=== PATIENT | male | born 1965 | race Caucasian/White ===

== ENCOUNTER 2022-10-16 17:21 | Emergency (ER) | payer BC, SELFPAY ==
--- NOTE | ~2022-10-16 | XR_ITS ---
EXAMINATION: XR CHEST CLINICAL INFORMATION: Food bolus stuck COMPARISON: None TECHNIQUE: 2 views of the chest were obtained. FINDINGS: No significant abnormality is noted involving the heart, lungs, mediastinum, bony thorax or soft tissues. XR/XR chest 2V IMPRESSION: Unremarkable examination.
--- NOTE | ~2022-10-16 | XR_ITS ---
EXAMINATION: XR SOFT TISSUE NECK CLINICAL INDICATION: Question food bolus stuck COMPARISON: None TECHNIQUE: 2 views of the soft tissue neck were obtained. FINDINGS: Soft tissue films of the neck demonstrate a normal larynx, pharynx and upper trachea. No soft tissue swelling or opaque foreign body is demonstrated. Mild cervical spondylosis C6-C7. Visualized lung apices are grossly clear. XR/XR soft tissue neck IMPRESSION: 1. No radiopaque foreign body identified. 2. Mild lower cervical spondylosis.
[2022-10-16 17:28] VITALS: BP 169/94; PULSE 70; RESP 16; TEMP 36.6; O2SAT 98; BMI 27.4
--- NOTE | 2022-10-16 17:28 | ED_ITS ---
HPI - Skin/Abscess/Foreign Bdy General Chief complaint: General Medical <CHRISTOPH Simpson - Last Filed: 10/16/22 17:32> Stated complaint: ?throat infection/infected bug bite <CHRISTOPH Simpson - Last Filed: 10/16/22 17:32> Time Seen by Provider: 10/16/22 18:50 <CHRISTOPH Simpson - Last Filed: 10/16/22 17:32> Source: patient <Austin Boyer MD - Last Filed: 10/17/22 16:26> Limitations: no limitations <Austin Boyer MD - Last Filed: 10/17/22 16:26> History of Present Illness HPI narrative: This is a 57-year-old male with a history of esophageal foreign body who was eating piece of meat today when it got lodged in his esophagus. The patient initially had discomfort but the bolus did pass and the discomfort has passed. He denies any residual sore throat. The patient also notes that 3 4 days ago he felt like he got a bug bite just below the base of his neck and his upper back. He has noted some pain and swelling to the area, with some drainage. He denies any fever. He has history of prostate cancer which is being followed, denies any diabetes. He also notes he did have H pylori diagnosed about a year ago and was treated and had a repeat test which was negative. <Austin Boyer MD - Last Filed: 10/17/22 16:26> Related Data Home medications: Previous Rx's Medication Instructions Recorded cephalexin 500 mg capsule 500 mg PO TID #20 caps 10/16/22 <CHRISTOPH Simpson - Last Filed: 10/16/22 17:32> Allergies/Adverse reactions: Allergies Allergy/AdvReac Type Severity Reaction Status Date / Time No Known Allergies Allergy Verified 10/16/22 17:28 <CHRISTOPH Simpson - Last Filed: 10/16/22 17:32> Review of Systems Review of Systems: As per HPI <Austin Boyer MD - Last Filed: 10/17/22 16:26> Constitutional: Constitutional: Denies fever(s) <Austin Boyer MD - Last Filed: 10/17/22 16:26> PMFSH Social History Social History: Social History Advance Directives: No Advance Directives Information Provided: Yes <CHRISTOPH Simpson - Last Filed: 10/16/22 17:32> Physical Exam Vital Signs: Vital Signs: Last Vital Signs Temp 97.9 F 10/16/22 17:28 Pulse 70 10/16/22 17:28 Resp 16 10/16/22 17:28 BP 169/94 H 10/16/22 17:28 Pulse Ox 98 10/16/22 17:28 BMI result Body Mass Index 27.4 <CHRISTOPH Simpson - Last Filed: 10/16/22 17:32> Vital Signs: Last Vital Signs Temp 97.9 F 10/16/22 17:28 Pulse 70 10/16/22 17:28 Resp 16 10/16/22 17:28 BP 169/94 H 10/16/22 17:28 Pulse Ox 98 10/16/22 17:28 BMI result Body Mass Index 27.4 <Austin Boyer MD - Last Filed: 10/17/22 16:26> Const: Other: PERRLA Conj [place] Mucous membranes moist Throat clear Neck supple Lungs CTA Heart RRR no murmurs rubs or gallops Abd soft, non tender, non distended Extremities no pitting edema Neuro alert and oriented x 3, non focal Skin: Approximately 2 cm in diameter ulcerated lesion just below the posterior base of the neck, with mild localized erythema. There is small amount of pus that can be expressed from this wound however there is no overall induration or fluctuance, lesion seems relatively superficial, no deeper pocket of pus suspected. <Austin Boyer MD - Last Filed: 10/17/22 16:26> Course Course Course Narrative: RME- 17:30PM - 57yoM c PMhx of H pylori presenting to the ED c c/o food getting lodged in his throat for the past 2 weeks. Reports that this happened in the past when he had it H pylori infection and had endoscope and was placed on antibiotics and his symptoms were improved over the past year up until 2 weeks ago. Also reports the insect bite to the back of his back that he would like it looked at. Reports the bug bite is swollen. Denies any other symptoms complaints or concerns at this time. Patient reports he normally lives in [place] and is here visiting. 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 Plan: Will obtain labs, soft tissue neck and chest x-ray. Patient will be sent to [facility] for further evaluation and treatment. Patient tolerating secretions well no trismus/drooling/stridor. <CHRISTOPH Simpson - Last Filed: 10/16/22 17:32> RME- 17:30PM - 57yoM c PMhx of H pylori presenting to the ED c c/o food getting lodged in his throat for the past 2 weeks. Reports that this happened in the past when he had it H pylori infection and had endoscope and was placed on antibiotics and his symptoms were improved over the past year up until 2 weeks ago. Also reports t he insect bite to the back of his back that he would like it looked at. Reports the bug bite is swollen. Denies any other symptoms complaints or concerns at this time. Patient reports he normally lives in [place] and is here visiting. 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 Plan: Will obtain labs, soft tissue neck and chest x-ray. Patient will be sent to [facility] for further evaluation and treatment. Patient tolerating secretions well no trismus/drooling/stridor. As much pus as possible was expressed from the patient's wound. Patient is being treated Keflex 500 mg p.o. t.i.d.. He is to do warm compresses or soaks. He has follow-up with his electric powerline examiner back in [place] regarding his recurrent esophageal issues. <Austin Boyer MD - Last Filed: 10/17/22 16:26> Medications Administered Discontinued Medications Generic Name Dose Route Start Last Admin Trade Name Freq PRN Reason Stop Dose Admin Cephalexin HCl 500 mg 10/16/22 19:03 10/16/22 19:32 Cephalexin 500 Mg Capsule PO 10/16/22 19:04 500 mg ONCE ONE Administration Cephalexin HCl 500 mg 10/16/22 19:05 10/16/22 19:32 Cephalexin 500 Mg Capsule PO 10/16/22 19:06 500 mg ONCE ONE Administration <CHRISTOPH Simpson - Last Filed: 10/16/22 17:32> Medications Administered Discontinued Medications Generic Name Dose Route Start Last Admin Trade Name Freq PRN Reason Stop Dose Admin Cephalexin HCl 500 mg 10/16/22 19:03 10/16/22 19:32 Cephalexin 500 Mg Capsule PO 10/16/22 19:04 500 mg ONCE ONE Administration Cephalexin HCl 500 mg 10/16/22 19:05 10/16/22 19:32 Cephalexin 500 Mg Capsule PO 10/16/22 19:06 500 mg ONCE ONE Administration <Austin Boyer MD - Last Filed: 10/17/22 16:26> Medical Decision Making Lab Data [facility] Lab Attestation statement: I reviewed the patient's lab results. <Austin Boyer MD - Last Filed: 10/17/22 16:26> Result Diagrams: : 10/16/22 17:46 10/16/22 17:46 <CHRISTOPH Simpson - Last Filed: 10/16/22 17:32> Labs: Lab Results 10/16/22 10/16/22 10/16/22 Range/Units 17:46 17:46 17:46 WBC 6.7 (4.8-10.8) X10*3/uL RBC 5.75 (4.60-5.80) X10*6/uL Hgb 16.9 (14.0-18.0) g/dl Hct 49.8 (42.0-52.0) % MCV 86.6 (80.0-98.0) fL MCH 29.4 (27.0-33.0) pg MCHC 33.9 (31.0-36.0) g/dl RDW 13.6 (11.0-16.0) % Plt Count 240 (160-400) X10*3/uL MPV 8.9 L (9.4-12.4) fL Immature Gran % (Auto) 0.6 H (0.0-0.4) % Neut % (Auto) 54.8 (45-73) % Lymph % (Auto) 30.1 (20-40) % [place] % (Auto) 9.5 (2-11) % Eos % (Auto) 4.3 H (0-4) % Baso % (Auto) 0.7 (0-2) % Lymph # (Auto) 2.0 (1.2-4.9) X10*3/uL [place] # (Auto) 0.6 (0.1-1.2) X10*3/uL Eos # (Auto) 0.3 (0.0-0.4) X10*3/uL Baso # (Auto) 0.1 (0.0-0.2) X10*3/uL Abs Immat Gran (auto) 0.04 H (0.00-0.03) X10*3/uL Absolute Neuts (auto) 3.7 (2.0-8.3) x10*3/uL Absolute Nucleated RBC 0.000 (0.0-0.012) X10*3/uL Nucleated RBC % (auto) 0.0 (0.0-0.2) /100WBC PT 12.2 (10.0-13.1) SEC INR 1.1 (0.9-1.1) Sodium 139 (135-145) mmol/L Potassium 4.6 (3.3-5.1) mmol/L Chloride 104 (96-108) mmol/L Carbon Dioxide 28 (22-29) mmol/L Anion Gap 12 (12-20) BUN 20 H (9-16) mg/dL Creatinine 1.02 (0.5-1.4) mg/dL Estim Creat Clear Calc 70.3 Estimated GFR > 60 Random Glucose 103 (60-115) mg/dL Calcium 9.3 (8.4-10.2) mg/dL Magnesium 2.2 (1.6-2.6) mg/dL Total Bilirubin 0.7 (0.0-1.0) mg/dL AST 22 (5-37) U/L ALT 24 (0-40) U/L Alkaline Phosphatase 94 (39-117) U/L Total Protein 6.8 (6.5-8.0) g/dL Albumin 4.0 (3.5-5.0) g/dL COVID-19 (MICHAELLE) (Negative) COVID-19 Clin Com Influenza Type A (HOWARD) (Negative) Influenza Type B (HOWARD) (Negative) Influenza A & B Note S. pyogenes GrpA HOWARD (Negative) 10/16/22 10/16/22 10/16/22 Range/Units 18:47 18:47 18:47 WBC (4.8-10.8) X10*3/uL RBC (4.60-5.80) X10*6/uL Hgb (14.0-18.0) g/dl Hct (42.0-52.0) % MCV (80.0-98.0) fL MCH (27.0-33.0) pg MCHC (31.0-36.0) g/dl RDW (11.0-16.0) % Plt Count (160-400) X10*3/uL MPV (9.4-12.4) fL Immature Gran % (Auto) (0.0-0.4) % Neut % (Auto) (45-73) % Lymph % (Auto) (20-40) % [place] % (Auto) (2-11) % Eos % (Auto) (0-4) % Baso % (Auto) (0-2) % Lymph # (Auto) (1.2-4.9) X10*3/uL [place] # (Auto) (0.1-1.2) X10*3/uL Eos # (Auto) (0.0-0.4) X10*3/uL Baso # (Auto) (0.0-0.2) X10*3/uL Abs Immat Gran (auto) (0.00-0.03) X10*3/uL Absolute Neuts (auto) (2.0-8.3) x10*3/uL Absolute Nucleated RBC (0.0-0.012) X10*3/uL Nucleated RBC % (auto) (0.0-0.2) /100WBC PT (10.0-13.1) SEC INR (0.9-1.1) Sodium (135-145) mmol/L Potassium (3.3-5.1) mmol/L Chloride (96-108) mmol/L Carbon Dioxide (22-29) mmol/L Anion Gap (12-20) BUN (9-16) mg/dL Creatinine (0.5-1.4) mg/dL Estim Creat Clear Calc Estimated GFR Random Glucose (60-115) mg/dL Calcium (8.4-10.2) mg/dL Magnesium (1.6-2.6) mg/dL Total Bilirubin (0.0-1.0) mg/dL AST (5-37) U/L ALT (0-40) U/L Alkaline Phosphatase (39-117) U/L Total Protein (6.5-8.0) g/dL Albumin (3.5-5.0) g/dL COVID-19 (MICHAELLE) Negative (Negative) COVID-19 Clin Com See Note Influenza Type A (HOWARD) Negative (Negative) Influenza Type B (HOWARD) Negative (Negative) Influenza A & B Note See Note S. pyogenes GrpA HOWARD Positive A (Negative) <CHRISTOPH Simpson - Last Filed: 10/16/22 17:32> Lab Results 10/16/22 10/16/22 10/16/22 Range/Units 17:46 17:46 17:46 WBC 6.7 (4.8-10.8) X10*3/uL RBC 5.75 (4.60-5.80) X10*6/uL Hgb 16.9 (14.0-18.0) g/dl Hct 49.8 (42.0-52.0) % MCV 86.6 (80.0-98.0) fL MCH 29.4 (27.0-33.0) pg MCHC 33.9 (31.0-36.0) g/dl RDW 13.6 (11.0-16.0) % Plt Count 240 (160-400) X10*3/uL MPV 8.9 L (9.4-12.4) fL Immature Gran % (Auto) 0.6 H (0.0-0.4) % Neut % (Auto) 54.8 (45-73) % Lymph % (Auto) 30.1 (20-40) % [place] % (Auto) 9.5 (2-11) % Eos % (Auto) 4.3 H (0-4) % Baso % (Auto) 0.7 (0-2) % Lymph # (Auto) 2.0 (1.2-4.9) X10*3/uL [place] # (Auto) 0.6 (0.1-1.2) X10*3/uL Eos # (Auto) 0.3 (0.0-0.4) X10*3/uL Baso # (Auto) 0.1 (0.0-0.2) X10*3/uL Abs Immat Gran (auto) 0.04 H (0.00-0.03) X10*3/uL Absolute Neuts (auto) 3.7 (2.0-8.3) x10*3/uL Absolute Nucleated RBC 0.000 (0.0-0.012) X10*3/uL Nucleated RBC % (auto) 0.0 (0.0-0.2) /100WBC PT 12.2 (10.0-13.1) SEC INR 1.1 (0.9-1.1) Sodium 139 (135-145) mmol/L Potassium 4.6 (3.3-5.1) mmol/L Chloride 104 (96-108) mmol/L Carbon Dioxide 28 (22-29) mmol/L Anion Gap 12 (12-20) BUN 20 H (9-16) mg/dL Creatinine 1.02 (0.5-1.4) mg/dL Estim Creat Clear Calc 70.3 Estimated GFR > 60 Random Glucose 103 (60-115) mg/dL Calcium 9.3 (8.4-10.2) mg/dL Magnesium 2.2 (1.6-2.6) mg/dL Total Bilirubin 0.7 (0.0-1.0) mg/dL AST 22 (5-37) U/L ALT 24 (0-40) U/L Alkaline Phosphatase 94 (39-117) U/L Total Protein 6.8 (6.5-8.0) g/dL Albumin 4.0 (3.5-5.0) g/dL COVID-19 (MICHAELLE) (Negative) COVID-19 Clin Com Influenza Type A (HOWARD) (Negative) Influenza Type B (HOWARD) (Negative) Influenza A & B Note S. pyogenes GrpA HOWARD (Negative) 10/16/22 10/16/22 10/16/22 Range/Units 18:47 18:47 18:47 WBC (4.8-10.8) X10*3/uL RBC (4.60-5.80) X10*6/uL Hgb (14.0-18.0) g/dl Hct (42.0-52.0) % MCV (80.0-98.0) fL MCH (27.0-33.0) pg MCHC (31.0-36.0) g/dl RDW (11.0-16.0) % Plt Count (160-400) X10*3/uL MPV (9.4-12.4) fL Immature Gran % (Auto) (0.0-0.4) % Neut % (Auto) (45-73) % Lymph % (Auto) (20-40) % [place] % (Auto) (2-11) % Eos % (Auto) (0-4) % Baso % (Auto) (0-2) % Lymph # (Auto) (1.2-4.9) X10*3/uL [place] # (Auto) (0.1-1.2) X10*3/uL Eos # (Auto) (0.0-0.4) X10*3/uL Baso # (Auto) (0.0-0.2) X10*3/uL Abs Immat Gran (auto) (0.00-0.03) X10*3/uL Absolute Neuts (auto) (2.0-8.3) x10*3/uL Absolute Nucleated RBC (0.0-0.012) X10*3/uL Nucleated RBC % (auto) (0.0-0.2) /100WBC PT (10.0-13.1) SEC INR (0.9-1.1) Sodium (135-145) mmol/L Potassium (3.3-5.1) mmol/L Chloride (96-108) mmol/L Carbon Dioxide (22-29) mmol/L Anion Gap (12-20) BUN (9-16) mg/dL Creatinine (0.5-1.4) mg/dL Estim Creat Clear Calc Estimated GFR Random Glucose (60-115) mg/dL Calcium (8.4-10.2) mg/dL Magnesium (1.6-2.6) mg/dL Total Bilirubin (0.0-1.0) mg/dL AST (5-37) U/L ALT (0-40) U/L Alkaline Phosphatase (39-117) U/L Total Protein (6.5-8.0) g/dL Albumin (3.5-5.0) g/dL COVID-19 (MICHAELLE) Negative (Negative) COVID-19 Clin Com See Note Influenza Type A (HOWARD) Negative (Negative) Influenza Type B (HOWARD) Negative (Negative) Influenza A & B Note See Note S. pyogenes GrpA [facility] Positive A (Negative) <Austin Boyer MD - Last Filed: 10/17/22 16:26> Radiology Impression Discussion of test interpretation with radiology: I have reviewed the radiologist's reading. <Austin Boyer MD - Last Filed: 10/17/22 16:26> Radiologist Impression: Chest x-ray: FINDINGS: No significant abnormality is noted involving the heart, lungs, mediastinum, bony thorax or soft tissues. Soft tissue neck: IMPRESSION: 1.? No radiopaque foreign body identified. 2.? Mild lower cervical spondylosis. <Austin Boyer MD - Last Filed: 10/17/22 16:26> Discharge Plan Discharge Clinical Impression: Abscess, Esophageal foreign body <CHRISTOPH Simpson - Last Filed: 10/16/22 17:32> Patient Disposition: Home, Self-Care <CHRISTOPH Simpson - Last Filed: 10/16/22 17:32> Instructions: Esophageal Foreign Body (ED), Abscess (ED) <CHRISTOPH Simpson - Last Filed: 10/16/22 17:32> Additional Instructions: Take the cephalexin as prescribed. Try to eat either soft food or only small pieces of food. Follow up with your electric powerline examiner back in [place]. Apply warm compress or soak the abscess area at the base of your neck, for 15 minutes 3 times a day, and gently tried is milk out any additional/remaining pus. Return for any new or worsened symptoms <CHRISOTPH Simpson - Last Filed: 10/16/22 17:32> Prescriptions: New cephalexin 500 mg capsule 500 mg PO TID Qty: 20 0RF <CHRISTOPH Simpson - Last Filed: 10/16/22 17:32> Interventions: ED Discharge Assessment Last Done: 10/16/22 19:28 <CHRISTOPH Simpson - Last Filed: 10/16/22 17:32> Discharge Date/Time: 10/16/22 19:34 <CHRISTOPH Simpson - Last Filed: 10/16/22 17:32>
[2022-10-16 17:58] LABS: MANUAL DIFF FLAG NO
[2022-10-16 17:59] LABS: Basophils Absolute Auto 0.1 X10*3/uL (0.0-0.2); Basophils Percent Auto 0.7 % (0-2); Eosinophils Absolute Auto 0.3 X10*3/uL (0.0-0.4); Eosinophils Percent Auto 4.3 % (0-4); Hematocrit 49.8 % (42.0-52.0); Hemoglobin 16.9 g/dl (14.0-18.0); Imm Gran Abs Auto 0.04 X10*3/uL (0.00-0.03); Imm Gran Pct Auto 0.6 % (0.0-0.4); Lymphocytes Percent Auto 30.1 % (20-40); Mean Corpuscular HGB Conc 33.9 g/dl (31.0-36.0); Mean Corpuscular Hemoglobin 29.4 pg (27.0-33.0); Mean Corpuscular Volume 86.6 fL (80.0-98.0); Mean Platelet Volume 8.9 fL (9.4-12.4); Monocytes Absolute Auto 0.6 X10*3/uL (0.1-1.2); Monocytes Percent Auto 9.5 % (2-11); Neutrophils Absolute Auto 3.7 x10*3/uL (2.0-8.3); Neutrophils Percent Auto 54.8 % (45-73); Platelet Count 240 X10*3/uL (160-400); Red Blood Count 5.75 X10*6/uL (4.60-5.80); Red Cell Distribution Width 13.6 % (11.0-16.0); White Blood Count 6.7 X10*3/uL (4.8-10.8)
[2022-10-16 18:09] LABS: INTERNATIONAL NORM RATIO 1.1 (0.9-1.1); Prothrombin Time 12.2 SEC (10.0-13.1)
[2022-10-16 18:13] LABS: Alanine Aminotransferase 24 U/L (0-40); Alkaline Phosphatase 94 U/L (39-117); Anion Gap 12 (12-20); Aspartate Amino Transferase 22 U/L (5-37); Bilirubin Total 0.7 mg/dL (0.0-1.0); Blood Urea Nitrogen 20 mg/dL (9-16); Calcium 9.3 mg/dL (8.4-10.2); Carbon Dioxide 28 mmol/L (22-29); Chloride 104 mmol/L (96-108); Creatinine Clr Calc Pharmacy 70.3; Estimated Glomerular Filt Rate > 60; Glucose Random 103 mg/dL (60-115); Magnesium 2.2 mg/dL (1.6-2.6); Potassium 4.6 mmol/L (3.3-5.1); Sodium 139 mmol/L (135-145); Total Protein 6.8 g/dL (6.5-8.0)
--- NOTE | 2022-10-16 18:57 | PC.NURSE ---
pt refusing H.pylori workup (unable to provide stool) stated that he will follow up with his MD at home (stacy)
[2022-10-16 19:00] LABS: Strep A Nucleic Acid Positive (Negative)
[2022-10-16 19:13] LABS: COVID-19 Test Negative (Negative); IDNOW Serial# 16C4AD1C; IDNOW Serial# BCCEAD1C; Influenza A Negative (Negative); Influenza B2 Negative (Negative)
--- NOTE | 2022-10-16 19:29 | PC.NURSE ---
per request of provider, pt to be medicated with 500 mg po abx here and discharge pt with 500 mg po to take for next dose, pt visiting from [place].
[2022-10-16] MEDS: cephALEXin 500 MG CAPSULE PO ×2 (19:32)
== END 2022-10-16 19:34 | disposition home or self-care (01) ==
PROVIDERS: Physician Assistant Medical; Emergency Provider Emergency Medicine
DX: J02.0 Streptococcal pharyngitis (principal); R09.89 Other specified symptoms and signs involving the circulatory and respiratory systems; L02.11 Cutaneous abscess of neck; Z20.822 Contact with and (suspected) exposure to COVID-19
CPT/HCPCS: 36415; 70360; 71046; 80053; 83735; 85025; 85610; 87502; 87635; 87651; 99282; 99283